=== PATIENT | male | born 1950 | race Caucasian/White ===

== ENCOUNTER → 2018-10-17 | Outpatient (CLI) | payer BC, MEDICARE ==
[2018-10-17 10:43] LABS: Basophils # (A) 0.1 k/uL (0-0.2); Basophils % (A) 1 %; Eosinophils # (A) 0.2 k/uL (0-0.7); Eosinophils % (A) 3 %; HCT 46.8 % (39.0-53.0); Lymphocytes % (A) 30 %; MCH 29.7 pg (25.0-35.0); MCHC 32.1 g/dL (31.0-37.0); MCV 92.6 fL (80.0-100.0); Mean Platelet Volume 7.4; Monocytes # (A) 0.4 k/uL (0-1.0); Monocytes % (A) 6 %; Neutrophils % (A) 59 %; Platelet Count 216 k/uL (150-450); RBC 5.05 m/uL (4.30-5.90); RDW 14.8 % (11.5-15.5); WBC 6.8 k/uL (3.8-10.6)
[2018-10-17 10:50] LABS: Appearance,Urine Clear (Clear); Bilirubin,Urine Negative (Negative); Blood,Urine Negative (Negative); Color,Urine Yellow; Glucose,Urine (UA) Negative (Negative); Ketones,Urine Negative (Negative); Leukocyte Esterase,Urine Negative (Negative); Nitrite,Urine Negative (Negative); PH, Urine 6.5 (5.0-8.0); Protein,Urine Trace (Negative); Specific Gravity,Urine 1.024 (1.001-1.035); Urobilinogen,Urine <2.0 mg/dL (<2.0)
[2018-10-17 11:06] LABS: ALT 24 U/L (21-72); AST 26 U/L (17-59); African American GFR (CKD) >90 (>60 ml/min/1.73 sqM); Alkaline Phosphatase 65 U/L (38-126); Anion Gap 6 mmol/L; Blood Urea Nitrogen 24 mg/dL (9-20); Calcium 9.4 mg/dL (8.4-10.2); Carbon Dioxide 28 mmol/L (22-30); Chloride 106 mmol/L (98-107); Cholesterol 180 mg/dL (<200); Glucose 101 mg/dL (74-99); HDL Cholesterol 63 mg/dL (40-60); LDL Cholesterol,Calculated 104 mg/dL (0-99); Potassium 4.7 mmol/L (3.5-5.1); Sodium 140 mmol/L (137-145); Total Bilirubin 0.8 mg/dL (0.2-1.3); Total Protein 6.7 g/dL (6.3-8.2); Triglycerides 65 mg/dL (<150)
[2018-10-17 17:09] LABS: Vitamin D 25 Hydroxy 24.3 ng/mL (30.0-100.0)
[2018-10-17 18:47] LABS: Hemoglobin A1C 5.3 % (4.0-6.0)
== END | disposition home or self-care (01) ==
LOC: LAB 09:26
PROVIDERS: ATTEND Internal Medicine
DX: E55.9 Vitamin D deficiency, unspecified (principal); E87.8 Other disorders of electrolyte and fluid balance, not elsewhere classified; E11.9 Type 2 diabetes mellitus without complications; E03.9 Hypothyroidism, unspecified; I10 Essential (primary) hypertension; C61 Malignant neoplasm of prostate; D64.9 Anemia, unspecified
CPT/HCPCS: 36415; 80053; 80061; 81003; 82306; 82607; 83036; 84153; 84443; 85025

== ENCOUNTER → 2019-09-11 | Outpatient (CLI) | payer MEDICARE ==
[2019-09-11 08:26] LABS: Basophils # (A) 0.1 k/uL (0-0.2); Basophils % (A) 1 %; Eosinophils # (A) 0.2 k/uL (0-0.7); Eosinophils % (A) 3 %; HCT 48.1 % (39.0-53.0); HGB 15.6 gm/dL (13.0-17.5); Lymphocytes # (A) 2.4 k/uL (1.0-4.8); Lymphocytes % (A) 29 %; MCH 30.2 pg (25.0-35.0); MCHC 32.4 g/dL (31.0-37.0); MCV 93.1 fL (80.0-100.0); Mean Platelet Volume 7.6; Monocytes # (A) 0.6 k/uL (0-1.0); Monocytes % (A) 7 %; Neutrophils # (A) 4.7 k/uL (1.3-7.7); Neutrophils % (A) 58 %; Platelet Count 241 k/uL (150-450); RBC 5.17 m/uL (4.30-5.90); WBC 8.2 k/uL (3.8-10.6)
[2019-09-11 08:45] LABS: INR 0.9 (<1.2); Prothrombin Time 9.8 sec (9.0-12.0)
[2019-09-11 08:54] LABS: Potassium 4.5 mmol/L (3.5-5.1)
== END | disposition home or self-care (01) ==
LOC: LABPAT 07:21
PROVIDERS: ATTEND Orthopaedic Surgery
DX: Z01.818 Encounter for other preprocedural examination (principal); M17.12 Unilateral primary osteoarthritis, left knee; Z01.812 Encounter for preprocedural laboratory examination; Z79.01 Long term (current) use of anticoagulants
CPT/HCPCS: 36415; 80051; 85025; 85610; 87070; 93005

== ENCOUNTER 2019-09-15 11:22 | Day surgery (SDC) | payer MEDICARE ==
[2019-09-10 14:26] VITALS: BMI 34.2
--- NOTE | 2019-09-14 11:33 | HP ---
HISTORY AND PHYSICAL CHIEF COMPLAINT: Left knee pain. HISTORY OF PRESENT ILLNESS: The patient is a 69-year-old retired gentleman who presents with progressive left knee pain for the past several years. He notes swelling, stiffness, and giving way. He has a difficult time getting up from a seated position. He has tried medications, anti- inflammatories, and activity modifications along with exercise without much relief. He notes he is significantly limited because of pain. PAST MEDICAL HISTORY: Significant for arthritis. PAST SURGICAL HISTORY: Significant for left knee arthroscopy. CURRENT MEDICATIONS: Aleve and ibuprofen he denies drug allergies. FAMILY HISTORY: Significant for diabetes and heart disease. SOCIAL HISTORY: Negative for current tobacco or alcohol use. REVIEW OF SYSTEMS: Sixteen point review of systems otherwise reviewed and is noncontributory. PHYSICAL EXAMINATION: On examination, the patient is approximately 5 foot 11, 240 pounds of endomorphic habitus. HEENT exam is nonfocal. NECK: Supple he has painless passive motion of the left hip. Straight leg raise is negative. Active motion left knee -10 to 105 degrees of flexion. He is tender about the medial joint line. He has a moderate effusion. Collaterals are stable, Cecy is negative, Cristy's is equivocal. His distal neurovascular exam appears intact in the left lower extremity. He has genu varum alignment. Previous x-rays of the left knee obtained in the office show severe medial and patellofemoral compartment arthrosis. IMPRESSION: Left knee severe medial and patellofemoral compartment osteoarthrosis. RECOMMENDATIONS: I talked to the patient at length regarding his condition along with treatment options. At this point, he remains quite limited despite conservative measures. After thorough discussion, he opts to proceed with surgery. We will plan to proceed with left total knee arthroplasty. Risks and benefits were discussed at length in layman's terms. We will institute DVT prophylaxis postoperatively. MMODL / IJN: [id number] /
[~2019-09-15 11:22] MED LIST: ACETAMINOPHEN TAB 500 MG TAB PO ONE; MELOXICAM 7.5 MG TAB PO ONE; TRANEXAMIC ACID 1,000 MG in SODIUM CHLORIDE 0.9% 100 ML IVPB ONE
[2019-09-15] MEDS ORDERED: ACETAMINOPHEN TAB 500 MG TAB ONE (12:01)
[2019-09-15] MEDS ORDERED: ONDANSETRON 4 MG/2 ML VIAL ONE (12:09)
[2019-09-15] MEDS ORDERED: ONDANSETRON 4 MG/2 ML VIAL IVP ONE (12:10)
[2019-09-15] MEDS: LACTATED RINGERS 1,000 ML IV SCH ×2 (12:10→19:47)
[2019-09-15] MEDS ORDERED: fentaNYL (PF) 50 MCG/ML 2 ML AMP IV ONE (12:32)
[2019-09-15] MEDS ORDERED: MIDAZOLAM 2 MG/2 ML VIAL IVP ONE (12:32)
[2019-09-15] MEDS ORDERED: NEOSTIGMINE 1 MG/ML 10 ML VIAL ONE (13:25)
[2019-09-15] MEDS ORDERED: PROPOFOL 10 MG/ML 20 ML VIAL IV ONE (13:25)
[2019-09-15] MEDS ORDERED: MIDAZOLAM 2 MG/2 ML VIAL ONE (13:25)
[2019-09-15] MEDS ORDERED: LIDOCAINE 1% INJ 10MG/ML (20 ML MDV) ONE (13:25)
[2019-09-15] MEDS ORDERED: HYDROmorphone (PF) 1 MG/ML ONE (13:25)
[2019-09-15] MEDS ORDERED: SUCCINYLCHOLINE CHLORIDE 100 MG/5 ML SYR IV ONE (13:25)
[2019-09-15] MEDS ORDERED: TRANEXAMIC ACID 1,000 MG/10 ML VIAL ONE (13:25)
[2019-09-15] MEDS ORDERED: fentaNYL (PF) 50 MCG/ML 2 ML AMP ONE (13:25)
[2019-09-15] MEDS ORDERED: SODIUM CHLORIDE 0.9% 100 ML BAG ONE (13:25)
[2019-09-15] MEDS ORDERED: GLYCOPYRROLATE 0.2 MG/ML 2 ML VIAL ONE (13:25)
[2019-09-15] MEDS ORDERED: ceFAZolin 3,000 MG in SODIUM CHLORIDE 0.9% IRRIGATIO 3,000 ML IRRIGATION ONE (14:03)
[2019-09-15] MEDS: ROPIVACAINE 246.25 MG, EPINEPHrine 0.5 MG, KETOROLAC 30 MG, cloNIDine HCL/PF 80 MCG, WA... MISCELLANE ONE ×10 (14:43→16:21)
--- NOTE | 2019-09-15 15:00 | P.ANPRN ---
Procedure Note - Anesthesia - Nerve Block Performed Left Adductor Canal Infusion Time Out Performed: Yes Date of Procedure: 09/15/19 Procedure Start Time: 12:31 Procedure Stop Time: 12:40 Location of Patient: PreOp Indication: Acute Post-Operative Pain, Analgesia, Dx/Pain Location, Requested by Surgeon Sedation Type: Sedate with meaningful contact maintained Preparation: Sterile Prep Position: Supine Catheter: Indwelling Needle Types: Pajunk Needle Gauge: 21 Ultrasound used to visualize needle placement: Yes Ultrasound used to observe medication spread: Yes Injectate: 0.5% Ropivacaine (see comment for volume) (20ml) Blood Aspirated: No Pain Paresthesia on Injection Noted: No Resistance on Injection: Normal Image Stored and Saved: Yes Events: Uneventful and Well Tolerated
[2019-09-15] MEDS ORDERED: LACTATED RINGERS 1,000 ML IV ONE ×3 (15:01→17:24)
[2019-09-15] MEDS ORDERED: ACETAMINOPHEN TAB 325 MG TAB PO PRN (15:23)
[2019-09-15] MEDS ORDERED: NALOXONE 0.4 MG/ML 1 ML VIAL IV PRN (15:23)
[2019-09-15] MEDS ORDERED: traMADol 50 MG TAB PO PRN (15:23)
[2019-09-15] MEDS ORDERED: HYDROcodone/APAP 5-325MG 1 EACH TAB PO PRN (15:23)
[2019-09-15] MEDS ORDERED: HYDROmorphone 0.5 MG/0.5 ML SYRINGE IVP PRN (15:23)
[2019-09-15] MEDS ORDERED: MAGNESIUM HYDROXIDE 2,400 MG/10 ML CUP PO PRN (15:23)
[2019-09-15] MEDS ORDERED: ROPIVACAINE 0.2%-NS ON-Q PUMP 1,090 MG, EMPTY PAIN BALL 1 EACH MISCELLANE PRN (15:31)
--- NOTE | 2019-09-15 15:56 | P.OP ---
Date of Procedure: 09/15/19 Preoperative Diagnosis: Left knee severe tricompartmental osteoarthrosis Postoperative Diagnosis: Same Procedure(s) Performed: Left total knee arthroplastycementedposterior stabilized Implants: Depuy Attune size 8 cemented femoral component, size 7 cemented tibial component, 10 mm articular surface, 38 mm cemented patellar component. This is a posterior stabilized implant. Anesthesia: GETA, regional, local Surgeon: Beau Ramirez Zone Maintenance Technician #1: Rober Roman Estimated Blood Loss (ml): 50 Pathology: other (Bone fragments) Condition: stable Disposition: PACU Indications for Procedure: The patient's a 69-year-old gentleman who presents with progressive left knee pain secondary osteoarthrosis despite conservative measures. A discussion of the risks and benefits of operative intervention versus continued conservative measures made with patient. He opted to proceed with surgery. Operative risks to include infection, neurovascular injury, development of blood clots, possible component loosening, possible component failure and need for subsequent procedures was discussed. Informed consent was obtained. Operative Findings: As below Description of Procedure: The patient was brought to the operating room, and after attempted induction of spinal anesthesia was converted to a general anesthetic and then the left lower extremity was prepped and draped in a normal fashion. The tourniquet was inflated to 270 mm marker. A longitudinal incision extending 3 finger breaths above the superior pole of patella extending to the medial aspect the tibial tubercle was then made. The skin and subcutaneous tissues were divided sharply. Electrocautery was used for hemostasis. A medial parapatellar arthrotomy was performed. The medial soft tissues to include the superficial and deep portions of the medial collateral ligament were elevated subperiosteally. The patella was everted. A portion of the retropatellar fat pad was excised sharply. The anterior cruciate ligament was sacrificed. Blunt retractors were placed. A starting hole was made in the distal femur 1 cm anterior to the posterior cruciate ligament origin. An intramedullary femoral guide was then inserted planning on 5 valgus distal cut with 9 mm distal resection. The cutting block was pinned in place. The distal cut was then made. The posterior referencing sizing guide was utilized. I felt size 8 was most appropriate. 3 of external rotation was built into the system and verified off the trans-epicondylar axis and the posterior condyles. The cutting block was pinned in place. The anterior, posterior, and chamfer cuts then made. Bone fragments were removed. The intercondylar guide was placed and the notch cut was made with a sagittal saw. The bone block was removed in one fragment. The trial component was then placed. There is good anterior to posterior and medial to lateral fit. The distal peg holes were drilled. The trial component was removed. Attention was then paid towards preparing the proximal femur. An extra medullary guide was utilized in line with the tibial shaft and second metatarsal distally. I planned on 6 mm resection from the medial compartment. The cutting block was pinned in place. The proximal tibial cut was then made. The bone was removed in one fragment. The remnants of the medial and lateral menisci were excised at the capsular junction with electrocautery. The tibia sized most appropriately at size 7. The trial femoral and tibial components were placed along with a 10 mm articular surface. I was able to obtain full flexion and extension with internal and external rotation. After several flexion and extension cycles, the tibial rotation was marked with electrocautery line with the medial one third of the tibial tubercle. Attention was then paid towards preparing the patella. A patella reamer was utilized taking stem to 14 mm of bone stock. A good flush cut was made. The patella sized most appropriately 38 mm. The peg holes were drilled. The trial components placed. I had good patellofemoral tracking with no hands technique. The trial components were then removed. The tibia was prepared in the appropriate rotation with appropriate drill and keel punch. The posterior osteophytes were removed with a curved osteotome. The flexion and extension gaps were checked and felt to be symmetric at 10 mm. A trial components were then removed. The posterior soft tissues were injected with ropivacaine. The bony surfaces were prepared with pulsatile lavage and dried. The tibial component was then cemented place was fully seated. Excess cement was removed. The femoral component cemented place and was fully seated. Excess cement was removed. The trial 10 mm articular surface was placed and the knee was put in full extension. The patella component was cemented place. After the cement had sufficiently hardened, the knee was again taken through a range of motion. Again I was able to obtain full flexion and extension with varus and valgus stress. The trial 10 mm articular surface was removed and the final one inserted. This was fully seated. Care was taken to avoid any soft tissue interposition. Pulsatile lavage was again utilized. The medial parapatellar arthrotomy was closed with #2 Ethibond suture. The tourniquet was deflated with approximately 65 total tourniquet time. Final hemostasis was obtained with the cautery. There was minimal bleeding therefore a deep drain was not placed. The subcutaneous tissues were reapproximated with interrupted 2-0 Vicryl sutures. The skin was reapproximated with 3-0 subcuticular strata fix suture. Skin tape and adhesive was applied. A sterile dressing was applied. The patient was awoken from sedation and transferred to recovery room in good condition. Blood loss was estimated at 50 mL. No complications were incurred. Sponge and needle counts were correct at the end of the case. Davey HOLLAND assisted during the major components of this case to include exposure, bone resection, implantation, and closure.
[2019-09-15] MEDS: MEPERIDINE 50 MG/ML SYRINGE IVP ONE ×2 (16:00→17:16)
[2019-09-15] MEDS ORDERED: diphenhydrAMINE 50 MG/ML 1 ML VIAL IVP ONE (16:01)
--- NOTE | 2019-09-15 16:14 | XR ---
EXAMINATION TYPE: XR knee limited LT DATE OF EXAM: 09/15/2019 CLINICAL HISTORY: Postoperative evaluation Two views of the left knee are submitted. Identified are changes of total knee arthroplasty with fem oral and tibial components appearing well seated. Postsurgical soft tissue changes are noted. Align ment is anatomic.
[2019-09-15] MEDS ORDERED: LABETALOL SYRINGE 5 MG/ML IVP ONE (16:50)
[2019-09-15] MEDS: HYDROcodone/APAP 5-325MG 1 EACH TAB PO PRN (19:31)
[2019-09-15] MEDS: traMADol 50 MG TAB PO SCH ×2 (19:44→21:03)
[2019-09-15] MEDS ORDERED: SENNOSIDES-DOCUSATE SODIUM 1 EACH TAB PO SCH (21:00)
--- NOTE | 2019-09-15 22:56 | P.HPIM ---
History of Present Illness H&P Date: 09/15/19 The patient is a 69-year-old male with known PMH who was admitted to the hospital for an elective left total knee replacement which he underwent earlier today. The patient was subsequently seen on the surgical unit postoperatively. At time of interview, the patient reported excellent control of his pain, currently at a 1 out of 10. He reported that he has been up and out of bed and walking to the restroom though did not have a bowel movement or pass urine yet. He otherwise denied any additional complaints. He denied chest pain, shortness of breath, fever, chills, nausea, vomiting, sore throat, abdominal pain, dizziness, or headaches. Review of Systems Pertinent positives and negatives as discussed in HPI, a complete review of systems was performed and all other systems are negative. Past Medical History Past Medical History: Osteoarthritis (OA) History of Any Multi-Drug Resistant Organisms: None Reported Past Surgical History: Appendectomy, Orthopedic Surgery Additional Past Surgical History / Comment(s): rt hand surgery, rt carpal tunel, arthroscopy left knee, shoulder surgery(not sure which one) Past Anesthesia/Blood Transfusion Reactions: No Reported Reaction Past Psychological History: No Psychological Hx Reported Smoking Status: Never smoker Past Alcohol Use History: Occasional Past Drug Use History: None Reported - Past Family History Mother Family Medical History: No Reported History Medications and Allergies Home Medications Medication Instructions Recorded Confirmed Type Acetaminophen [Tylenol Extra 500 mg PO BID PRN 09/10/19 09/10/19 History Strength] Allergies Allergy/AdvReac Type Severity Reaction Status Date / Time No Known Allergies Allergy Verified 09/10/19 14:16 Physical Exam Vitals: Vital Signs Temp Pulse Pulse Resp BP BP BP 09/15/19 19:20 97.7 F 83 20 129/77 09/15/19 18:32 76 16 95/55 09/15/19 18:02 56 L 16 123/73 09/15/19 17:32 52 L 18 131/63 09/15/19 17:16 52 L 16 117/59 09/15/19 17:01 53 L 16 126/73 09/15/19 16:46 95 16 172/69 09/15/19 16:31 103 H 16 173/92 09/15/19 16:16 83 16 166/88 09/15/19 15:54 96.8 F L 109 H 18 133/90 09/15/19 12:45 55 L 18 140/68 09/15/19 12:04 97.2 F L 57 L 20 154/73 Pulse Ox 09/15/19 19:20 94 L 09/15/19 18:32 100 09/15/19 18:02 100 09/15/19 17:32 100 09/15/19 17:16 100 09/15/19 17:01 100 09/15/19 16:46 99 09/15/19 16:31 94 L 09/15/19 16:16 98 09/15/19 15:54 96 09/15/19 12:45 09/15/19 12:04 96 Intake and Output 09/15/19 09/15/19 09/15/19 06:59 14:59 22:59 Intake Total 1051 1440 Output Total 100 Balance 1051 1340 Intake: IV 1051 1200 Oral 240 Output: Urine 50 Estimated Blood Loss 50 Other: Weight 111.2 kg 111.2 kg General: non toxic, no distress, appears at stated age, obese Derm: no unusual rashes/lesions no unusual ecchymoses, warm, dry Head: atraumatic, normocephalic, symmetric Eyes: EOMI, no lid lag, anicteric sclera, pupils equal round reactive to light ENT: Nose and ears atraumatic, no thrush, no pharyngeal erythema Neck: No thyromegaly, no cervical lymphadenopathy, trachea midline, supple Mouth: no lip lesion, mucus membranes moist Cardiovascular: S1S2 reg, no murmur, positive posterior tibial pulse bilateral, no edema, capillary refill less than 2 seconds Lungs: CTA bilateral, no rhonchi, no rales , no accessory muscle use Abdominal: soft, nontender to palpation, no guarding, no appreciable organomegaly, normal bowel sounds Ext: no gross muscle atrophy, left knee Paramjit bandage in place, clean and dry, no contractures, Neuro: CN II-XI grossly intact, light touch intact all 4 extremities, finger to nose within normal limits, Psych: Alert, oriented, appropriate affect Thrombosis Risk Factor Assmnt - Choose All That Apply Any of the Below Risk Factors Present?: Yes Each Factor Represents 1 point: Obesity (BMI >25) Other Risk Factors: Yes Each Risk Factor Represents 2 Points: Age 61-74 years, Major surgery Each Risk Factor Represents 3 Points: Positive Lupus Anticoagulant Thrombosis Risk Factor Assessment Total Risk Factor Score: 8 Thrombosis Risk Factor Assessment Level: High Risk Assessment and Plan Plan: Status post left total knee replacement -Management including pain control as per the surgery service Obesity -Patient advised on lifestyle modifications
[2019-09-16] MEDS: traMADol 50 MG TAB PO SCH (06:55)
[2019-09-16 08:00] VITALS: BP 112/62; PULSE 57; RESP 16; TEMP 98.7
[2019-09-16] MEDS ORDERED: RIVAROXABAN 10 MG TAB PO SCH (09:00)
[2019-09-16 09:13] LABS: Basophils % (A) 0 %; Eosinophils # (A) 0.1 k/uL (0-0.7); Eosinophils % (A) 0 %; HCT 40.4 % (39.0-53.0); HGB 13.2 gm/dL (13.0-17.5); Lymphocytes # (A) 1.5 k/uL (1.0-4.8); Lymphocytes % (A) 14 %; MCH 31.2 pg (25.0-35.0); MCHC 32.7 g/dL (31.0-37.0); MCV 95.4 fL (80.0-100.0); Mean Platelet Volume 7.7; Monocytes # (A) 0.7 k/uL (0-1.0); Monocytes % (A) 6 %; Neutrophils # (A) 8.4 k/uL (1.3-7.7); Neutrophils % (A) 78 %; Platelet Count 194 k/uL (150-450); RBC 4.24 m/uL (4.30-5.90); RDW 12.8 % (11.5-15.5); WBC 10.7 k/uL (3.8-10.6)
[2019-09-16] MEDS: HYDROcodone/APAP 5-325MG 1 EACH TAB PO PRN (11:13)
--- NOTE | 2019-09-16 11:13 | P.PN ---
Subjective Progress Note Date: 09/16/19 Principal diagnosis: status post left total knee arthroplasty Patient evaluated at bedside, his resting his hospital chair. He is done very well physical therapy. He has no acute complaints. He denies chest pain or shortness of breath. Objective - Vital Signs Vital signs: Vital Signs Temp 98.7 F 09/16/19 06:51 Pulse 57 L 09/16/19 06:51 Resp 16 09/16/19 06:51 BP 112/62 09/16/19 06:51 Pulse Ox 95 09/16/19 06:51 Intake & Output 09/15/19 09/16/19 09/16/19 18:59 06:59 18:59 Intake Total 2251 820 Output Total 50 150 Balance 2201 670 Weight 111.2 kg 111.2 kg Intake: IV 2251 Oral 820 Output: Urine 150 Estimated Blood Loss 50 Other: # Voids 1 - Exam Left lower extremity: Incision is clean, dry, and intact. The exofin fusion tape is in good condition. There is minimal soft tissue swelling and ecchymosis surrounding the medial and lateral aspects of the incision. Calf is soft, no tenderness with palpation. Plantar flexion, dorsiflexion, EHL, FHL are intact. Sensory exam to light touch throughout the extremity is intact, dorsal pedis pulses 2+. - Labs CBC & Chem 7: 09/16/19 07:42 Labs: Abnormal Lab Results - Last 24 Hours (Table) 09/16/19 Range/Units 07:42 WBC 10.7 H (3.8-10.6) k/uL RBC 4.24 L (4.30-5.90) m/uL Neutrophils # 8.4 H (1.3-7.7) k/uL Assessment and Plan Assessment: Status post left total knee arthroplasty Plan: Pain control, continue current medication GI and DVT prophylaxis, plan for discharge on Eliquis 2.5 mg twice a day Wound care instructions discussed/icing and elevating techniques discussed Home physical therapy and nursing after discharge Plan for discharge home today Time with Patient: Less than 30
--- NOTE | 2019-09-16 11:18 | P.DS ---
Providers Date of admission: Left total knee arthroplasty Expected date of discharge: 09/16/19 Attending physician: Beau Ramirez Consults: 09/15/19 15:23 Consult Physician Routine Consulting Provider: Dorina Pleitez Consult Reason/Comments: medical management Do you want consulting provider notified?: Yes Primary care physician: Dorina Pleitez MD Hospital Course: Date of admission: 09/15/2019 Date of discharge: 09/16/2019 Admission diagnosis: Status post left total knee arthroplasty Discharge diagnosis: Same Attending physician: Dr. Ramirez Surgical procedures: Left total knee arthroplasty Brief history: Patient is a 69-year-old male with a history of regressive primary left knee osteoarthritis. At this point patient has failed conservative treatment measures and has opted to proceed with a elective for left total knee arthroplasty. Hospital course: Details of patient's surgery can be found in operative report. Patient tolerated the procedure well and was subsequently transported to orthopedic floor. Patient's orthopeidc and medical care was provided daily. Patient had daily laboratory tests performed for evaluation of overall blood counts. Patient had daily physical therapy to include strengthening range of motion as well as education with walker ambulation. Patient had daily CPM usage as part of their physical therapy program. Patient was treated with Xarelto for their postoperative DVT prophylaxis during their inpatient stay. Patient was noted to have a relatively uneventful postoperative course. Patient reported satisfactory pain control with oral pain medications by postoperative day 0. Patient showed satisfactory progress with physical therapy. Patient moved steadily through the program and had no difficulty meeting the goals by postoperative day 1. Given patient's otherwise satisfactory course and having met physical therapy goals, plan is to discharge patient home on postoperative day 1. Discharge condition/disposition: Patient will be discharged home in stable condition. Discharge medications: Instructions are given on resumption of patient's normal daily medications per primary care recommendation, in addition patient will be prescribed Dora 5 mg/325 mg, tramadol 50 mg, Colace 100 mg, Eliquis 2.5mg Discharge instructions: 1. Wound care and infection precautions, no lotions, creams, moisturizers. No soaking, tubs, pools, hottubs. Do not scrub over the incision. 2. Weight-bear as tolerated with walker / cane until follow-up. 3. Ice and elevate when necessary. Do not exceed 20 minutes per hour with ice pack. 4. Utilize compression sleeve until seen at first follow up appointment. 5. Visiting nursing care. 6. Home physical therapy including home CPM. 7. Pain meds and anticoagulants per prescription. 8. Pain medication has potential to cause constipation. Increase oral fluid and fiber intake. Contact primary care provider if you have not had a bowel movement within 48 hours after discharge 9. No anti-inflammatory medication until discussed at first post operative visit, this including Motrin, Aleve, Mobic, Diclofenac. 10. Follow up in office at 2 weeks postop with Davey Roman PA-C 11. Follow up with your primary care doctor 7-10 days after discharge. 12. Contact [facility] with any questions, . Procedures: Left total knee arthroplasty Patient Condition at Discharge: Good Plan - Discharge Summary Discharge Rx Participant: Yes New Discharge Prescriptions: New Docusate [Colace] 100 mg PO DAILY #30 capsule Apixaban [Eliquis] 2.5 mg PO BID #60 tab Hydrocodone/Acetaminophen [Dora 5-325] 1 - 2 each PO Q6HR PRN #56 tab PRN Reason: Pain traMADol HCl [Ultram] 50 mg PO Q6H PRN #28 tab PRN Reason: Pain Continue Acetaminophen [Tylenol Extra Strength] 500 mg PO BID PRN PRN Reason: Pain Discharge Medication List Acetaminophen [Tylenol Extra Strength] 500 mg PO BID PRN 09/10/19 [History] Apixaban [Eliquis] 2.5 mg PO BID #60 tab 09/16/19 [Rx] Docusate [Colace] 100 mg PO DAILY #30 capsule 09/16/19 [Rx] Hydrocodone/Acetaminophen [Dora 5-325] 1 - 2 each PO Q6HR PRN #56 tab 09/16/19 [Rx] traMADol HCl [Ultram] 50 mg PO Q6H PRN #28 tab 09/16/19 [Rx] Follow up Appointment(s)/Referral(s): Rober Roman PAC [PHYSICIAN AUTOMOTIVE SERVICE PROFESSIONAL] - 2 Weeks Collins Jimenez MD [Medical Doctor] - As Needed (information if you decide to change doctors) [facility] Visiting Nurse, [NON-STAFF] - Activity/Diet/Wound Care/Special Instructions: Orthopedic Discharge Instructions: 1. Wound care and infection precautions, keep incision dry and covered while showering, no lotions, creams, moisturizers. No soaking, pools, hot tubs. Do not scrub over incision. 2. Weight-bear as tolerated with walker / cane until follow-up. 3. Ice and elevate when necessary. Do not exceed 20 minutes per hour with ice pack. 4. Utilize compression sleeve until seen at first follow up appointment. 5. Pain meds and anticoagulants per prescription. 6. Pain medication has potential to cause constipation. Increase oral fluid and fiber intake. Contact primary care provider if you have not had a bowel movement within 48 hours after discharge. 7. No anti-inflammatory medication until discussed at first post operative visit, this including Motrin, Aleve, Mobic, Diclofenac. 8. Follow up in office at 2 weeks postop with Davey Roman PA-C 9. Follow up with your primary care doctor 7-10 days after discharge. 10. Contact [facility] with any questions, [phone]. 11. *Please call [facility] once home to arrange delivery of Continuous Passive Motion (CPM) machine: [phone]. Discharge Disposition: HOME WITH HOME HEALTH SERVICES
--- NOTE | 2019-09-16 12:20 | P.PN ---
Progress Note - Text 09/15 642am 69-year-old male status post total knee replacement by Dr. Ramirez. Patient has an On-Q pump for postop pain control. Patient seen and evaluated this morning was VAS of 2. Plan to continue On-Q pump infusion.
--- NOTE | 2019-09-16 13:50 | P.PN ---
Subjective Progress Note Date: 09/16/19 Principal diagnosis: knee pain Patient is a 69-year-old male for history of arthritis who presented for elective left total knee replacement which she underwent without any immediate postoperative complications. Patient seen and examined at bedside. He is already been up and ambulating to the bathroom on his own. Still awaiting a physical therapy. Denies any chest pain, shortness breath, nausea, vomiting, lightheadedness, or dizziness. He states he is looking for PCP in the area if he is no longer working in [place]. He did give him some recommendations. Objective - Vital Signs Vital signs: Vital Signs Temp 98.7 F 09/16/19 06:51 Pulse 57 L 09/16/19 06:51 Resp 16 09/16/19 06:51 BP 112/62 09/16/19 06:51 Pulse Ox 95 09/16/19 06:51 Intake & Output 09/15/19 09/16/19 09/16/19 18:59 06:59 18:59 Intake Total 2251 820 Output Total 50 150 Balance 2201 670 Weight 111.2 kg 111.2 kg Intake: IV 2251 Oral 820 Output: Urine 150 Estimated Blood Loss 50 Other: # Voids 1 - Exam General: non toxic, no distress, appears at stated age Derm: Dressing in place over left knee, warm, dry Head: atraumatic, normocephalic, symmetric Eyes: EOMI, no lid lag, anicteric sclera Mouth: no lip lesion, mucus membranes moist Cardiovascular: S1S2 reg, no murmur, positive posterior tibial pulse bilateral, Lungs: CTA bilateral, no rhonchi, no rales , no accessory muscle use Abdominal: soft, nontender to palpation, no guarding, no appreciable organomegaly Ext: no gross muscle atrophy, no edema, no contractures Neuro: CN II-XI grossly intact, no focal neuro deficits Psych: Alert, oriented, appropriate affect - Labs CBC & Chem 7: 09/16/19 07:42 Labs: Abnormal Lab Results - Last 24 Hours (Table) 09/16/19 Range/Units 07:42 WBC 10.7 H (3.8-10.6) k/uL RBC 4.24 L (4.30-5.90) m/uL Neutrophils # 8.4 H (1.3-7.7) k/uL Assessment and Plan Assessment: 69-year-old male here for elective left total knee replacement Leukocytosis, suspect reactive -No signs of postop fever -Patient without complaints -No need for further evaluation Obesity with BMI 34.2 -Structured outpatient weight loss Medically optimized for discharge at the discretion of ortho surgery.
== END 2019-09-16 12:55 | disposition home health service (06) ==
LOC: OR 11:22 → 4SSUR 15:24 → OR 09-16 12:55
PROVIDERS: ATTEND Orthopaedic Surgery
DX: M17.12 Unilateral primary osteoarthritis, left knee (principal); D72.829 Elevated white blood cell count, unspecified; R79.1 Abnormal coagulation profile; R94.31 Abnormal electrocardiogram [ECG] [EKG]; E66.9 Obesity, unspecified; Z68.34 Body mass index [BMI] 34.0-34.9, adult; Z90.49 Acquired absence of other specified parts of digestive tract; Z98.890 Other specified postprocedural states; Z86.69 Personal history of other diseases of the nervous system and sense organs; Z79.1 Long term (current) use of non-steroidal anti-inflammatories (NSAID); Z83.3 Family history of diabetes mellitus; Z82.49 Family history of ischemic heart disease and other diseases of the circulatory system
CPT/HCPCS: 27447; 97116; 97110; 97161; 64448; 76942; 85025; 88300; 73560; C1713; C1776; J2250; J0171; J1200; J2710; J2175; J0690 ×3; J2405; J2001; J3010; J1885; J1170; J2795 ×2; J0330; J2704; J0735

== ENCOUNTER 2020-03-09 09:03 | Day surgery (SDC) | payer MEDICARE ==
[2020-03-07 14:47] VITALS: BMI 33.5
[~2020-03-09 09:03] MED LIST changes: -ACETAMINOPHEN TAB 500 MG TAB PO ONE; +LACTATED RINGERS 1,000 ML IV SCH; -MELOXICAM 7.5 MG TAB PO ONE; -TRANEXAMIC ACID 1,000 MG in SODIUM CHLORIDE 0.9% 100 ML IVPB ONE
[2020-03-09 09:32] VITALS: TEMP 97.9
[2020-03-09] MEDS ORDERED: LIDOCAINE 1% (10MG/ML) FOR IV START INTRADERMA ONE (09:38)
[2020-03-09] MEDS ORDERED: PROPOFOL 10 MG/ML 20 ML VIAL IV ONE (10:07)
--- NOTE | 2020-03-09 10:22 | P.PCN ---
Date of Procedure: 03/09/20 Procedure(s) Performed: BRIEF HISTORY: Patient is a 70-year-old pleasant white male scheduled for an elective colonoscopy as a part of evaluation of prior history of colon polyps. Last colonoscopy was 5 years ago. PROCEDURE PERFORMED: Colonoscopy. PREOPERATIVE DIAGNOSIS: History of colon polyps. IV sedation per Anesthesia. PROCEDURE: After informed consent was obtained, the patient, was brought into the endoscopy unit. IV sedation was administered by Anesthesia under continuous monitoring. Digital rectal examination was normal. Initially the Olympus CF-160 flexible video colonoscope was then inserted in the rectum, gradually advanced into the cecum without any difficulty. Careful examination was performed as the scope was gradually being withdrawn. Ileocecal valve and the appendiceal orifice were visualized and appeared normal. Prep was excellent. Mucosa of the cecum, ascending colon, transverse colon, descending colon, sigmoid colon, and rectum appeared normal. Scattered sigmoid diverticulosis. Retroflexion was performed in the rectum and no lesions were seen. The patient tolerated the procedure well. IMPRESSION: Normal-appearing colon from rectum to cecum with no evidence of colorectal neoplasia . Scattered sigmoid diverticulosis. RECOMMENDATIONS: Findings of this examination were discussed with the patient well as his family. He was advised to have a repeat surveillance colonoscopy in 5 years from now..
[2020-03-09 11:01] VITALS: BP 127/83; PULSE 54; RESP 18
== END 2020-03-09 11:10 | disposition home or self-care (01) ==
LOC: ORWHC2ENDO 09:03
PROVIDERS: ATTEND Internal Medicine Gastroenterology
DX: Z12.11 Encounter for screening for malignant neoplasm of colon (principal); K57.30 Diverticulosis of large intestine without perforation or abscess without bleeding; Z86.010 Personal history of colon polyps; Z79.899 Other long term (current) drug therapy
CPT/HCPCS: J2704; G0105

== ENCOUNTER → 2022-03-02 | Outpatient (CLI) | payer MEDICARE ==
--- NOTE | 2022-03-02 12:04 | CA ---
Exercise Stress Test Report Name: Nilay Saldana Exam Date: 03/02/2022 09:06 Exam Location: [facility] Stress Ht (in): 73 Wt (lb): 240 BSA: 2.33 Ordering Phys: Dyllan Reynoso MD Referring Phys: Suzy Vega PAC Technologist: Adriano Arguello Age: 72 Gender: M : 1950 Procedure CPT: Indications: Z82.49 fam hx ischemic heart isease ICD-10 Codes: Patient History: Medications: TADALAFIL Meds past 24 hrs: Pretest Chest Pain: STRESS TEST Cecilio Protocol Exercise Duration (min:sec): 07:[address] Depressions (mm): Angina Score: Quiroz Score: Resting HR (bpm): 67 Peak HR (bpm): 145 Resting BP (mmHg): 135 / 93 Peak BP (mmHg): 183 / 86 MPHR: 150 Target HR: 128 % MPHR: 97 METS: 9.2 Total Dose: Peak Dose: Atropine: Double Product: 32650 BP Response: Stress Termination: Reached target heart rate Stress Symptoms: NO SYMPTOMS Stress Summary: ECG ANALYSIS Resting ECG: Stress ECG: CONCLUSIONS Baseline heart rate 61 beats a minute, Baseline blood pressure 135/93 mmHg Baseline 12-lead EKG shows sinus rhythm with normal ST segments Patient exercised on a Cecilio protocol for 7 minutes 15 seconds Peak heart rate 144 beats a minute, PEEP blood pressure 182/89 mmHg No ECG evidence for ischemia No arrhythmias Dr. Elio Mcgill MD (Electronically Signed) Final Date: 02 March 2022 12:03
== END | disposition home or self-care (01) ==
LOC: RADNMMAIN 08:49
PROVIDERS: ATTEND Family Medicine
DX: Z82.49 Family history of ischemic heart disease and other diseases of the circulatory system (principal)
CPT/HCPCS: 93017

== ENCOUNTER 2024-02-16 10:55 | Emergency (ER) | payer MEDICARE ==
[2024-02-16 11:03] VITALS: RESP 18; TEMP 97.3
--- NOTE | 2024-02-16 11:21 | ED ---
General Adult HPI - General Chief complaint: Neuro Symptoms/Deficit Stated complaint: R eye issue,headache Time Seen by Provider: 02/16/24 11:06 Source: patient, RN/MD, RN notes reviewed Mode of arrival: ambulatory Limitations: no limitations - History of Present Illness Initial comments: This is a 73-year-old male sent by Dr. Soliz presenting with with right eye pressure/blurriness x 3 days. Patient endorses associated headache/pressure over right eye. Patient endorses use of glasses and history of cataracts but denies history of glaucoma. Patient otherwise denies neurological deficits, hemiplegia, paresthesia, ataxia. Denies fever, chills, dizziness, chest pain, dyspnea, abdominal pain, N/V/D. Onset/Timin -: days(s) Location: eyes Quality: other (Pressure) Associated Symptoms: headaches Treatments Prior to Arrival: none - Related Data Home Medications Medication Instructions Recorded Confirmed Ibuprofen [Advil] 200 mg PO DIRECTED PRN 03/07/20 03/07/20 Naproxen Sodium [Aleve] 220 mg PO DIRECTED PRN 03/07/20 03/07/20 Allergies Allergy/AdvReac Type Severity Reaction Status Date / Time No Known Allergies Allergy Verified 02/16/24 10:58 Review of Systems ROS Statement: Those systems with pertinent positive or pertinent negative responses have been documented in the HPI. ROS Other: All systems not noted in ROS Statement are negative. Past Medical History Past Medical History: Osteoarthritis (OA) Additional Past Medical History / Comment(s): HX COLON POLYPS. History of Any Multi-Drug Resistant Organisms: None Reported Past Surgical History: Appendectomy, Joint Replacement, Orthopedic Surgery Additional Past Surgical History / Comment(s): rt hand surgery, rt carpal tunel, arthroscopy left knee, shoulder surgery., TOTAL LEFT KNEE Past Anesthesia/Blood Transfusion Reactions: No Reported Reaction Past Psychological History: No Psychological Hx Reported Smoking Status: Never smoker Past Alcohol Use History: Occasional Past Drug Use History: None Reported - Past Family History Mother Family Medical History: No Reported History General Exam Limitations: no limitations General appearance: alert, in no apparent distress Head exam: Present: atraumatic, normocephalic, normal inspection Eye exam: Present: normal appearance, PERRL, EOMI, other (Tonometer: Right eye- 13, left eye-14). Absent: scleral icterus, conjunctival injection, nystagmus, periorbital swelling Pupils: Present: normal accommodation ENT exam: Present: normal exam, mucous membranes moist Neck exam: Present: normal inspection. Absent: tenderness, meningismus, lymphadenopathy Respiratory exam: Present: normal lung sounds bilaterally. Absent: respiratory distress, wheezes, rales, rhonchi, stridor Cardiovascular Exam: Present: regular rate, normal rhythm, normal heart sounds. Absent: systolic murmur, diastolic murmur, rubs, gallop, clicks GI/Abdominal exam: Present: soft, normal bowel sounds. Absent: distended, tenderness, guarding, rebound, rigid Extremities exam: Present: normal inspection, full ROM, normal capillary refill. Absent: tenderness, pedal edema, joint swelling, calf tenderness Back exam: Present: normal inspection Neurological exam: Present: alert, oriented X3, CN II-XII intact Psychiatric exam: Present: normal affect, normal mood Skin exam: Present: warm, dry, intact, normal color. Absent: rash Course Vital Signs 02/16/24 10:59 Temperature 97.3 F L Pulse Rate 63 Respiratory 18 Rate Blood Pressure 138/78 O2 Sat by Pulse 97 Oximetry Medical Decision Making - Medical Decision Making Was pt. sent in by a medical professional or institution (, PA, ELECT[employer]ICIAN [employer]INE, urgent care, hospital, or shelter...) When possible be specific @ -[No] Did you speak to anyone other than the patient for history (EMS, parent, family, police, friend...)? What history was obtained from this source @ -[No] Did you review nursing and triage notes (agree or disagree)? Why? @ -[I reviewed and agree with nursing and triage notes] Were old charts reviewed (outside hosp., previous admission, EMS record, old EKG, old radiological studies, urgent care reports/EKG's, shelter records)? Report findings @ -[No old charts were reviewed] Differential Diagnosis (chest pain, altered mental status, abdominal pain women, abdominal pain men, vaginal bleeding, weakness, fever, dyspnea, syncope, headache, dizziness, GI bleed, back pain, seizure, CVA, palpatations, mental health, musculoskeletal)? @ -Differential Headache: Migraine, tension, cluster, carbon monoxide, central venous thrombosis, pension karma temporal arteritis, acute closure glaucoma, intercranial hemorrhage, mastoiditis, sinusitis, head injury, glaucoma, increased intraocular pressure, iritis, episcleritis this is not meant to be an all-inclusive list. EKG interpreted by me (3pts min.). @ -Not done X-rays interpreted by me (1pt min.). @ -[None done] CT interpreted by me (1pt min.). @ -[None done] U/S interpreted by me (1pt. min.). @ -[None done] What testing was considered but not performed or refused? (CT, X-rays, U/S, labs)? Why? @ -[None] What meds were considered but not given or refused? Why? @ -[None] Did you discuss the management of the patient with other professionals (professionals i.e. , PA, E[employer]IAN [employer]INE, lab, RT, psych nurse, group social worker, machine fancy stitcher, teacher, ict help desk officer, foster care case manager)? Give summary @ -[No] Was smoking cessation discussed for >3mins.? @ -[No] Was critical care preformed (if so, how long)? @ -[No] Were there social determinants of health that impacted care today? How? (Homelessness, low income, unemployed, alcoholism, drug addiction, transportation, low edu. Level, literacy, decrease access to med. care, halfway, rehab)? @ -[No] Was there de-escalation of care discussed even if they declined (Discuss DNR or withdrawal of care, Hospice)? DNR status @ -[No] What co-morbidities impacted this encounter? (DM, HTN, Smoking, COPD, CAD, Cancer, CVA, ARF, Chemo, Hep., AIDS, mental health diagnosis, sleep apnea, morbid obesity)? @ -[None] Was patient admitted / discharged? Hospital course, mention meds given and route, prescriptions, significant lab abnormalities, going to OR and other pertinent info. @ -[hospital course] Undiagnosed new problem with uncertain prognosis? @ -[No] Drug Therapy requiring intensive monitoring for toxicity (Heparin, Nitro, Insulin, Cardizem)? @ -[No] Were any procedures done? @ -[No] Diagnosis/symptom? @ -[default] Acute, or Chronic, or Acute on Chronic? @ -Acute Uncomplicated (without systemic symptoms) or Complicated (systemic symptoms)? @ -Uncomplicated Side effects of treatment? @ -[No] Exacerbation, Progression, or Severe Exacerbation? @ -[No] Poses a threat to life or bodily function? How? (Chest pain, [place], [place], pneumonia, PE, COPD, DKA, ARF, appy, cholecystitis, CVA, Diverticulitis, Homicidal, Suicidal, threat to staff... and all critical care pts) @ -[No] - Lab Data Result diagrams: 02/16/24 11:02/16/24 11: Lab Results 02/16/24 02/16/24 02/16/24 Range/Units 11: 11: 11:24 WBC 7.1 (3.8-10.6) k/uL RBC 5.17 (4.30-5.90) m/uL Hgb 15.7 (13.0-17.5) gm/dL Hct 48.2 (39.0-53.0) % MCV 93.3 (80.0-100.0) fL MCH 30.5 (25.0-35.0) pg MCHC 32.7 (31.0-37.0) g/dL RDW 12.9 (11.5-15.5) % Plt Count 213 (150-450) k/uL MPV 7.3 Neutrophils % 61 % Lymphocytes % 28 % Monocytes % 7 % Eosinophils % 2 % Basophils % 1 % Neutrophils # 4.3 (1.3-7.7) k/uL Lymphocytes # 2.0 (1.0-4.8) k/uL Monocytes # 0.5 (0-1.0) k/uL Eosinophils # 0.1 (0-0.7) k/uL Basophils # 0.1 (0-0.2) k/uL PT 10.6 (10.0-12.5) sec INR 1.0 (<1.2) APTT 23.9 (22.0-30.0) sec Sodium 138 (137-145) mmol/L Potassium 4.7 (3.5-5.1) mmol/L Chloride 105 (98-107) mmol/L Carbon Dioxide 30 (22-30) mmol/L Anion Gap 3 mmol/L BUN 24 H (9-20) mg/dL Creatinine 0.88 (0.66-1.25) mg/dL Est GFR (CKD-EPI)AfAm >90 (>60 ml/min/1.73 sqM) Est GFR (CKD-EPI)NonAf 87 (>60 ml/min/1.73 sqM) Glucose 97 (74-99) mg/dL Calcium 9.0 (8.4-10.2) mg/dL Total Bilirubin 1.0 (0.2-1.3) mg/dL AST 23 (17-59) U/L ALT 19 (4-49) U/L Alkaline Phosphatase 82 (38-126) U/L Total Protein 6.6 (6.3-8.2) g/dL Albumin 4.0 (3.5-5.0) g/dL Disposition Clinical Impression: Blurred vision, right eye Disposition: HOME SELF-CARE Condition: Good Instructions (If sedation given, give patient instructions): Blurred Vision (ED) Is patient prescribed a controlled substance at d/c from ED?: No Referrals: Dyllan Reynoso MD [Primary Care Provider] - 1-2 days Time of Disposition: 13:28
[2024-02-16 11:43] LABS: Basophils # (A) 0.1 k/uL (0-0.2); Basophils % (A) 1 %; Eosinophils # (A) 0.1 k/uL (0-0.7); Eosinophils % (A) 2 %; HCT 48.2 % (39.0-53.0); HGB 15.7 gm/dL (13.0-17.5); Lymphocytes % (A) 28 %; MCH 30.5 pg (25.0-35.0); MCHC 32.7 g/dL (31.0-37.0); MCV 93.3 fL (80.0-100.0); Mean Platelet Volume 7.3; Monocytes # (A) 0.5 k/uL (0-1.0); Monocytes % (A) 7 %; Neutrophils # (A) 4.3 k/uL (1.3-7.7); Neutrophils % (A) 61 %; Platelet Count 213 k/uL (150-450); RBC 5.17 m/uL (4.30-5.90); RDW 12.9 % (11.5-15.5); WBC 7.1 k/uL (3.8-10.6)
[2024-02-16 11:54] LABS: Partial Thromboplastin Time 23.9 sec (22.0-30.0); Prothrombin Time 10.6 sec (10.0-12.5)
[2024-02-16 12:06] LABS: ALT 19 U/L (4-49); AST 23 U/L (17-59); African American GFR (CKD) >90 (>60 ml/min/1.73 sqM); Alkaline Phosphatase 82 U/L (38-126); Anion Gap 3 mmol/L; Blood Urea Nitrogen 24 mg/dL (9-20); Carbon Dioxide 30 mmol/L (22-30); Chloride 105 mmol/L (98-107); Glucose 97 mg/dL (74-99); Non-African American GFR(CKD) 87 (>60 ml/min/1.73 sqM); Potassium 4.7 mmol/L (3.5-5.1); Sodium 138 mmol/L (137-145); Total Protein 6.6 g/dL (6.3-8.2)
--- NOTE | 2024-02-16 12:41 | CT ---
EXAMINATION TYPE: CT brain wo con DATE OF EXAM: 02/16/2024 HISTORY: DIZZY. Acute neuro deficit, stroke suspected CT DLP: 1085 mGycm. Automated Exposure Control for Dose Reduction was Utilized. TECHNIQUE: CT scan of the head is performed without contrast. COMPARISON: None. FINDINGS: There is no acute intracranial hemorrhage or midline shift identified. There is mild to m oderate diffuse ventricular and sulcal prominence consistent with diffuse age-related cerebral atroph y. There is mild low-attenuation in the periventricular white matter most likely consistent with chr onic small vessel ischemic change in patient of this age. Bilateral aphakia is seen. The visualized s inuses are clear. IMPRESSION: No acute intracranial hemorrhage or midline shift. There is [id number] diffuse ag e-related cerebral atrophy and mild probable chronic small vessel ischemic change noted. If clinical concern for acute stroke persists further investigation with MRI study may be warranted. [facility], , 02/16/2024 12:39 PM
--- NOTE | 2024-02-16 13:09 | CT ---
EXAMINATION TYPE: CT angio head neck DATE OF EXAM: 02/16/2024 HISTORY: DIZZY and headache. Frontal lobe pressure. Acute onset neuro deficit. COMPARISON: NONE CT DLP: 662.5 mGycm. Automated Exposure Control for Dose Reduction was Utilized. TECHNIQUE: CTA scan of the head and neck is performed with IV Contrast, patient injected with 65 mL of Isovue 370, axial images are obtained, coronal and sagittal reformatted images are reviewed. 3D re constructed images are created on an independent workstation and reviewed. FINDINGS: Carotid/Vascular Structures: Normal three-vessel origin from aortic arch. No significant stenosis. Mi [id number] peripheral plaque at right greater than left carotid bulbs. No significant stenosis. T he external carotid arteries bilaterally. Vertebral arteries are codominant and patent to the basilar junction. No linear hypodensity to suggest dissection. Patent anterior communicating artery is seen. No large vessel occlusion or aneurysm at the level of the [place] of [place]. Other: Cervical spine is straightened with multilevel disc space narrowing. IMPRESSION: No significant vascular abnormality is seen. NASCET criteria was used in interpretation of this exam? [facility], , 02/16/2024 1:06 PM
[2024-02-16] MEDS: KETOROLAC 15 MG/ML 1 ML VIAL IVP STA (13:42)
[2024-02-16 13:50] VITALS: BP 139/71; PULSE 60
== END 2024-02-16 13:50 | disposition home or self-care (01) ==
LOC: EC 10:55
DX: H53.8 Other visual disturbances (principal)
CPT/HCPCS: 99284 ×2; 36415; 80053; 85025; 85610; 85730; 70496; 70450; 70498; Q9967